=== PATIENT | female | born 2000 | race Caucasian/White ===

== ENCOUNTER → 2024-07-31 | Emergency (ER) | payer OTHER, BC ==
[~2024-07-31] VITALS: Ht 170.2 cm; Wt 51.0 kg
[~2024-07-31] MED LIST: HYDROCODONE BIT/ACETAMINOPHEN 5/325 MG 1 TAB HOME.PACK PO ONE; IBUPROFEN 800 MG TAB PO ONE; LEXAPRO10 MG PO; NORGESTIMATE-E1 EAC1 PO
[2024-07-31 19:49] VITALS: BP 130/82
== END ==
LOC: ED 17:39
DX: S93.402A Sprain of unspecified ligament of left ankle, initial encounter (principal); V80.010A Animal-rider injured by fall from or being thrown from horse in noncollision accident, initial encounter; Z79.899 Other long term (current) drug therapy
CPT/HCPCS: 73610; 99283; A9270